=== PATIENT | female | born 1980 | race Two or more races ===

== ENCOUNTER 2025-05-15 13:34 | Inpatient (IN) | payer OTHER ==
[~2025-05-15] VITALS: Ht 160 cm; Wt 91.9 kg
--- NOTE | 2025-05-15 14:28 | ED.PDOC ---
GI ASSESSMENT HPI Comments 44 y.o female presents to the ED for a chief complaint of RUQ pain radiating across epigastric region and to her back, associated with nausea that started this morning at 0400. Patient describes pain as sharp, constant, and has no alleviating factors despite taking Ibuprofen 800mg this morning. She mentions a history of gallstones with no cholecystectomy. She denies any vomiting, diarrhea, fever, chills. Chief Complaint: Abdominal Pain Time Seen by MD: 14:02 Reviewed Notes: Nurses Notes, Medications, Allergies Allergies: Coded Allergies: Sulfamethoxazole w/Trimethoprim (Verified Allergy, Unknown, RASH, 1 07/15/24) Information Source: Patient Mode of Arrival: Ambulatory Timing: Hours Duration: Since onset Quality: Sharp Vomitus: None Stool: Normal Severity: Moderate Recent: None Recent Hx of: Other (gallstones ) Pain Location: Epigastric, RUQ Modifying Factors: Nothing Associated sign and symptoms: Nausea, Abdominal Pain Past Medical History PAST MEDICAL HISTORY: Gallstones Surgical History: Denies all surgeries [employer] SCI[employer] 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 History Family History Family History: Reviewed,noncontributory to illness Social History Smoker: Non-Smoker Alcohol: Denies ETOH Use Drugs: Denies Drug Use Lives In: Home Constitutional: denies: chills, diaphoresis, fatigue, fever, malaise, sweats, weakness, others EENTM: denies: blurred vision, double vision, ear bleeding, ear discharge, ear drainage, ear pain, ear ringing, eye pain, eye redness, hearing loss, mouth pain, mouth swelling, nasal discharge, nose bleeding, nose congestion, nose pain, photophobia, tearing, throat pain, throat swelling, voice changes, others Respiratory: denies: cough, hemoptysis, orthopnea, SOB at rest, shortness of breath, SOB with excertion, stridor, wheezing, others Cardiovascular: denies: chest pain, dizzy spells, diaphoresis, Dyspnea on exertion, edema, irregular heart beat, left arm pain, lightheadedness, palpitations, PND, syncope, others Gastrointestinal: reports: abdominal pain, nausea; denies: abdomen distended, blood streaked bowels, constipated, diarrhea, dysphagia, difficulty swallowing, hematemesis, melena, poor appetite, poor fluid intake, rectal bleeding, rectal pain, vomiting, others Genitourinary: denies: abnormal vagina bleeding, burning, dyspareunia, dysuria, flank pain, frequency, hematuria, incontinence, pain, , vagina discharge, urgency, others Neurological: denies: dizziness, fainting, headache, left sided numbness, left sided weakness, numbness, paresthesia, pre-existing deficit, right sided numbness, right sided weakness, seizure, speech problems, tingling, tremors, weakness, others Musculoskeletal: denies: back pain, gout, joint pain, joint swelling, muscle pain, muscle stiffness, neck pain, others Integumetry: denies: bruises, change in color, change in hair/nails, dryness, laceration, lesions, lumps, rash, wounds, others Allergic/Immunocompromised: denies: Difficulty Healing, Frequent Infections, Hives, Itching, others Hematologic/Lymphatic: denies: anemia, blood clots, easy bleeding, easy bru ising, swollen glands, others Endocrine: denies: excessive hunger, excessive sweating, excessive thirst, e xcessive urination, flushing, intolerance to cold, intolerance to heat, unexplained weight gain, unexplained weight loss, others Psychiatric: denies: anxiety, bipolar disorder, depression, hopeless, panic disorder, schizophrenia, sleepless, suicidal, others All Other Systems: Reviewed and Negative Physical Exam General Appearance: Moderate Distress HEENT: Normal ENT Inspection, Pharynx Normal, TMs Normal Neck: Full Range of Motion, Non-Tender, Normal, Normal Inspection Respiratory: Chest Non-Tender, Lungs Clear, No Accessory Muscle Use, No Respiratory Distress, Normal Breath Sounds Cardiovascular: No Edema, No JVD, No Murmur, No Gallop, Normal Peripheral Pulses, Regular Rate/Rhythm Breast Exam: Deferred Gastrointestinal: RUQ Genitalia: Deferred Pelvic: Deferred Rectal: Deferred Extremities: No calf tenderness, Normal capillary refill, Normal inspection, Normal range of motion, Non-tender, No pedal edema Musculoskeletal : Apperance: Normal Neurologic: Alert, medical researcher II-XII nml as Tested, No Motor Deficits, Normal Affect, Normal Mood, No Sensory Deficits Cerebellar Function: Normal Reflexes: Normal Skin: Dry, Normal Color, Warm Peripheral Pulses: 3+ Radial (R), 3+ Radial (L) Lymphatic: No Adenopathy Was a procedure done? Was a procedure done?: No GI differential Dx Differential Diagnosis: Cholangitis, Cholecystitis, Constipation, Esophagitis, Gastritis/PUD, Gastroenteritis X-Ray, Labs, Meds, VS Vital Signs Date Time Temp Pulse Resp B/P (MAP) Pulse Ox O2 Delivery O2 Flow Rate FiO2 05/15/25 15:26 98.6 82 17 119/74 (89) 100 98.6 05/15/25 15:26 82 17 100 Room Air 05/15/25 15:26 100 17 119/74 05/15/25 13:41 98.0 71 12 135/93 97 98.0 Lab Test 05/15/25 15:29 05/15/25 14:46 Range/Units Urine Color Pending Urine Clarity Pending Urine pH Pending Urine Specific [place] Pending Urine Protein Pending Urine Ketones Pending Urine Blood Pending Urine Nitrite Pending Urine Bilirubin Pending Urine Urobilinogen Pending Urine Leukocyte Esterase Pending Urine RBC Pending Urine Microscopic WBC Pending Urine Squamous Epithelial Cells Pending Urine Bacteria Pending Urine Glucose Pending White Blood Count 13.5 H 4.4-10.8 10^3/uL Red Blood Count 4.82 4.0-5.20 10^6/uL Hemoglobin 14.0 12.2-16.2 g/dL Hematocrit 42.1 36.0-46.0 % Mean Corpuscular Volume 87.2 80.0-100.0 fL Mean Corpuscular Hemoglobin 29.0 28.0-32.0 pg Mean Corpuscular Hemoglobin Concent 33.3 32.0-36.0 g/dL Red Cell Distribution Width 14.1 11.8-14.3 % Platelet Count 325 140-450 10^3/uL Mean Platelet Volume 8.6 6.9-10.8 fL Neutrophils (%) (Auto) 57.7 37.0-80.0 % Lymphocytes (%) (Auto) 33.4 10.0-50.0 % Monocytes (%) (Auto) 6.4 0.0-12.0 % Eosinophils (%) (Auto) 1.8 0.0-7.0 % Basophils (%) (Auto) 0.7 0.0-2.0 % Neutrophils # (Auto) 7.8 1.6-8.6 10 ^3/uL Lymphocytes # (Auto) 4.5 0.4-5.4 10 ^3/uL Monocytes # (Auto) 0.9 0-1.3 10 ^3/uL Eosinophils # (Auto) 0.2 0-0.8 10 ^3/uL Basophils # (Auto) 0.1 0-0.2 10 ^3/uL Nucleated Red Blood Cells 0.0 % Sodium Level 139 136-145 mmol/L Potassium Level 4.2 3.5-5.1 mmol/L Chloride Level 107 98-107 mmol/L Carbon Dioxide Level 24 20-31 mmol/L Anion Gap 8 5-15 Blood Urea Nitrogen 10 9-23 mg/dL Creatinine 0.74 0.550-1.02 mg/dL Glomerular Filtration Rate Calc 103 >90 mL/min BUN/Creatinine Ratio 13.5 10.0-20.0 Serum Glucose 116 H 74-106 mg/dL Calcium Level 10.2 8.7-10.4 mg/dL Total Bilirubin 0.3 0.2-1.0 mg/dL Aspartate Amino Transferase (AST) 17 13-40 U/L Alanine Aminotransferase (ALT) 10 7-40 U/L Alkaline Phosphatase 88 46-116 U/L Total Protein 7.5 5.7-8.2 g/dL Albumin 4.6 3.2-4.8 g/dL Lipase 39 12-53 U/L Current Medications Medications (Trade) Dose Ordered Sig/Shlomo Route Start Time Stop Time Status Last Admin Morphine Sulfate 4 mg ONCE ONCE IV 05/15/25 14:15 05/15/25 14:16 DC 05/15/25 15:26 Ondansetron HCl (Zofran) 4 mg ONCE ONCE IV 05/15/25 14:15 05/15/25 14:16 DC 05/15/25 15:25 Patient alert. Complaining of right upper quadrant pain. Ultrasound reveals gallstone. Vitals stable. Answering questions. Liver profile within normal limits. Lipase within normal limits. WBC slightly elevated. Possibly need HIDA scan. Establish intravenous access. Was given fluids. Was given Rocephin. Was given Flagyl. Explained to the patient. Continue monitoring. Time of 1ST Reevaluation: 14:25 Reevaluation 1ST: Unchanged Patient Education/Counseling: Diagnosis, Treatment, Prognosis Family Education/Counseling: No Family Present SEPSIS Sepsis Screen Date sepsis recognized/suspect: May 15, 2025 Time Sepsis recognized/suspect: 1342 Recent Procedure: No On Antibiotic Therapy: No Respiratory Rate >20: No Heart Rate >90: No Temp<36 C (96.8 F) or >38.3 C: No SBP <90 or MAP <65 mmHG: No New Acute Mental Status Change: No Is the patient on CPAP, BIPAP,: No Physician Orders Urinalysis (05/15/25 14:12) Gallbladder (05/15/25 14:12) Vital Signs Date Time Temp Pulse Resp B/P (MAP) Pulse Ox O2 Delivery O2 Flow Rate FiO2 05/15/25 15:26 98.6 82 17 119/74 (89) 100 98.6 05/15/25 15:26 82 17 100 Room Air 05/15/25 15:26 100 17 119/74 05/15/25 13:41 98.0 71 12 135/93 97 98.0 Laboratory Tests Test 05/15/25 14:46 White Blood Count 13.5 10^3/uL (4.4-10.8) H Medications Medications Dose Ordered Sig/Shlomo Route Start Time Stop Time Status Last Admin Dose Admin Morphine Sulfate 4 mg ONCE ONCE IV 05/15/25 14:15 05/15/25 14:16 DC 05/15/25 15:26 Ondansetron HCl 4 mg ONCE ONCE IV 05/15/25 14:15 05/15/25 14:16 DC 05/15/25 15:25 Departure 1 Departure Time of Disposition: 16:27 Impression: Primary Impression: Acute abdominal pain Additional Impression: Gallstones Disposition: ADMITTED INPATIENT Admit to: Med Surg Condition: Guarded Critical Care Note Critical Care Time?: No Stability Stability form required: No I personally scribed for NADIYA DILLARD MD ([email or web address]) on 05/15/25 at 14:28. Electronically submitted by Ivet Wiley ([facility]). NADIYA DILLARD MD May 15, 2025 14:28
[2025-05-15 15:00] LABS: Hematocrit 42.1 % (36.0-46.0); Hemoglobin 14.0 g/dL (12.2-16.2); Mean Corpuscular Hemoglobin 29.0 pg (28.0-32.0); Mean Corpuscular Volume 87.2 fL (80.0-100.0); Nucleated Red Blood Cells % 0.0 %
[2025-05-15 15:14] LABS: Alanine Aminotransferase 10 U/L (7-40); Albumin 4.6 g/dL (3.2-4.8); Alkaline Phosphatase 88 U/L (46-116); Anion Gap 8 (5-15); BUN/Creatinine Ratio 13.5 (10.0-20.0); Blood Urea Nitrogen 10 mg/dL (9-23); Calcium 10.2 mg/dL (8.7-10.4); Carbon Dioxide 24 mmol/L (20-31); Chloride 107 mmol/L (98-107); Lipase 39 U/L (12-53); Potassium 4.2 mmol/L (3.5-5.1); Sodium 139 mmol/L (136-145); Total Protein 7.5 g/dL (5.7-8.2)
[2025-05-15 15:15] LABS: Bilirubin, Total 0.3 mg/dL (0.2-1.0); Glucose 116 mg/dL (74-106)
--- NOTE | 2025-05-15 15:16 | DVH ---
ULTRASOUND ABDOMEN, LIMITED RIGHT UPPER QUADRANT: REASON FOR EXAM: Acute cholecystitis. Abdominal pain. TECHNIQUE: Real-time sector scans in the transverse and longitudinal planes were obtained through the right upper quadrant of the abdomen. FINDINGS: The liver is of normal size and contour. The liver appears diffusely mildly echogenic. There is hepatopetal flow in the portal vein. There is no intrahepatic biliary ductal dilatation. The common bile duct is not visualized. There are shadowing gallstones and sludge within the gallbladder. There is no gallbladder wall thickening nor pericholecystic fluid. There is no sonographic Bright's sign. The visualized portion of the pancreas is unremarkable. The right kidney measures 9.1 cm. No hydronephrosis or nephrolithiasis is identified. There is no evidence of right renal mass or cyst. The visualized portions of the abdominal aorta demonstrate no evidence of aneurysmal dilatation. The visualized inferior vena cava is unremarkable. There is no free fluid identified in the right upper quadrant. IMPRESSION: Cholelithiasis without sonographic evidence of acute cholecystitis. No sonographic bright's sign. Diffusely echogenic liver parenchyma. This may be secondary to steatosis or another diffuse hepatic process. Correlate clinically and with liver function tests.
[2025-05-15] MEDS: ONDANSETRON HCL 4 MG/2 ML VIAL IV ONE (15:25)
[2025-05-15] MEDS: MORPHINE SULFATE 4 MG/ML SYR/VIAL IV ONE (15:26)
[2025-05-15 16:28] LABS: Urine Protein, UAD Negative (Negative)
[2025-05-15 17:35] VITALS: PULSE 77; RESP 18; O2SAT 100
[2025-05-15 19:41] VITALS: PULSE 93; RESP 12; O2SAT 92
--- NOTE | 2025-05-15 23:55 | DVHHPRES ---
History of Present Illness Resident Creating Document: UTE SMITH RESIDENT History of Present Illness This is a 44-year-old female with past medical history of cholelithiasis, gastritis came to ER with a complaint of right upper quadrant and epigastric pain which is 7/10 intensity before came to the hospital. The pain started 2 days but worsen for a.m. day before admission which is spasmodic, intermittent, no radiation, no aggravating or relieving factor. Patient having similar symptoms 2 weeks back. Patient taking ibuprofen for 1 month due to abdominal pain. Associated symptoms nausea but no vomiting, fever, SOB, chest pain, headache, dysuria or any other acute distress. EGD done week earlier but unknown biopsy result. Past medical history: As above Past surgical history: x2 Family history: Parents diabetes, hypertension Personal history: Drinking alcohol occasionally but denies any illicit drug or smoking Allergy: Bactrim PCP: Unable to recall name(in [place]) Review of Systems Constitutional: Yes: Malaise; No: Fever, Chills, Sweats, Weakness, Other Eyes: No: Pain, Vision change, Conjunctivae inflammation, Eyelid inflammation, Other, Redness ENT: No: Ear pain, Ear discharge, Nose pain, Nose discharge, Nose congestion, Mouth pain, Mouth swelling, Throat pain, Throat swelling, Other Respiratory: No: Cough, Dry, Shortness of breath, SOB with excertion, Wheezing, Hemoptysis, Pleuritic Pain, Sputum, Wheezing, Other Cardiovascular: No: Chest Pain, Palpitations, Orthopnea, Paroxysmal Noc. Dyspnea, Edema, Lt Headedness, Other Gastrointestinal: Nausea, Abdominal Pain; No: Vomiting, Diarrhea, Constipation, Melena, Hematochezia, Other Genitourinary: No Dysuria, No Frequency, No Incontinence, No Hematuria, No Retention, No Other Musculoskeletal: No: other, neck pain, shoulder pain, arm pain, back pain, hand pain, leg pain, foot pain Skin: No: Rash, Lesions, Jaundice, Bruising, Other Neurological: No: Weakness, Numbness, Incoordination, Change in speech, Confusion, Seizures, Other Allergies: Coded Allergies: Sulfamethoxazole w/Trimethoprim (Verified Allergy, Unknown, RASH, 05/15/25) Exam Vital Signs Vital Signs Date Time Temp Pulse Resp B/P (MAP) Pulse Ox O2 Delivery O2 Flow Rate FiO2 05/15/25 22:00 76 11 109/71 (84) 96 05/15/25 19:41 98.4 98.4 05/15/25 19:41 Room Air* 0 21 General Appearance: Oriented X3, No acute distress, mild distress HEENT: Atraumatic, PERRLA, Mucous membr. moist/pink Respiratory: Clear to auscultation, Normal air movement Cardiovascular: Regular rate, Normal S1, Normal S2, No murmurs Abdominal: Normal bowel sounds, Other (Epigastric and right upper quadrant tender on deep palpation, Bright sign positive) Extremities: No clubbing, No edema Skin: No rashes, No breakdown Neuro: Normal gait, Normal speech, Strength at 5/5 X4 ext, Normal tone, Sensation intact, Cranial nerves 3-12 NL Psych/Mental Status: Mental status NL, Mood NL Labs/Xrays Labs Test 05/15/25 15:29 05/15/25 14:46 Range/Units Urine Color Colorless Yellow Urine Clarity Clear Clear Urine pH 5.5 5.0-9.0 Urine Specific [place] 1.005 1.001-1.035 Urine Protein Negative Negative Urine Ketones Negative Negative Urine Blood Negative Negative /uL Urine Nitrite Negative Negative Urine Bilirubin Negative Negative Urine Urobilinogen Normal Negative mg/dL Urine Leukocyte Esterase Negative Negative /uL Urine RBC None seen 0 - 4 /hpf Urine Microscopic WBC < 1 0-5 /HPF Urine Squamous Epithelial Cells Few <5 /hpf Urine Bacteria None seen None Seen /hpf Urine Glucose Normal Normal mg/dL White Blood Count 13.5 H 4.4-10.8 10^3/uL Red Blood Count 4.82 4.0-5.20 10^6/uL Hemoglobin 14.0 12.2-16.2 g/dL Hematocrit 42.1 36.0-46.0 % Mean Corpuscular Volume 87.2 80.0-100.0 fL Mean Corpuscular Hemoglobin 29.0 28.0-32.0 pg Mean Corpuscular Hemoglobin Concent 33.3 32.0-36.0 g/dL Red Cell Distribution Width 14.1 11.8-14.3 % Platelet Count 325 140-450 10^3/uL Mean Platelet Volume 8.6 6.9-10.8 fL Neutrophils (%) (Auto) 57.7 37.0-80.0 % Lymphocytes (%) (Auto) 33.4 10.0-50.0 % Monocytes (%) (Auto) 6.4 0.0-12.0 % Eosinophils (%) (Auto) 1.8 0.0-7.0 % Basophils (%) (Auto) 0.7 0.0-2.0 % Neutrophils # (Auto) 7.8 1.6-8.6 10 ^3/uL Lymphocytes # (Auto) 4.5 0.4-5.4 10 ^3/uL Monocytes # (Auto) 0.9 0-1.3 10 ^3/uL Eosinophils # (Auto) 0.2 0-0.8 10 ^3/uL Basophils # (Auto) 0.1 0-0.2 10 ^3/uL Nucleated Red Blood Cells 0.0 % Sodium Level 139 136-145 mmol/L Potassium Level 4.2 3.5-5.1 mmol/L Chloride Level 107 98-107 mmol/L Carbon Dioxide Level 24 20-31 mmol/L Anion Gap 8 5-15 Blood Urea Nitrogen 10 9-23 mg/dL Creatinine 0.74 0.550-1.02 mg/dL Glomerular Filtration Rate Calc 103 >90 mL/min BUN/Creatinine Ratio 13.5 10.0-20.0 Serum Glucose 116 H 74-106 mg/dL Calcium Level 10.2 8.7-10.4 mg/dL Total Bilirubin 0.3 0.2-1.0 mg/dL Aspartate Amino Transferase (AST) 17 13-40 U/L Alanine Aminotransferase (ALT) 10 7-40 U/L Alkaline Phosphatase 88 46-116 U/L Total Protein 7.5 5.7-8.2 g/dL Albumin 4.6 3.2-4.8 g/dL Lipase 39 12-53 U/L SEPSIS Sepsis Screen Date sepsis recognized/suspect: May 15, 2025 Time Sepsis recognized/suspect: 1952 Recent Procedure: No On Antibiotic Therapy: No Respiratory Rate >20: No Heart Rate >90: No Temp<36 C (96.8 F) or >38.3 C: No SBP <90 or MAP <65 mmHG: No New Acute Mental Status Change: No Is the patient on CPAP, BIPAP,: No Physician Orders Admit (05/15/25 23:50) Code Status (05/15/25 23:50) 0.9% Ns 1000 Ml (05/16/25 00:00) Npo (Nothing By Mouth) Diet (05/16/25 Breakfast) Notify Of Changes From Base (05/15/25 23:50) Zosyn Extended Infusion (05/16/25 00:00) Zosyn Extended Infusion (05/16/25 06:00) Hydromorphone Injection (Dilaudid Inject (05/16/25 00:00) Ondansetron Hcl (Zofran) (05/16/25 00:00) Vital Signs Date Time Temp Pulse Resp B/P (MAP) Pulse Ox O2 Delivery O2 Flow Rate FiO2 05/15/25 22:00 76 11 109/71 (84) 96 05/15/25 21:00 80 13 118/73 (88) 98 05/15/25 20:00 81 05/15/25 20:00 79 12 105/68 (80) 98 05/15/25 19:41 98.4 93 12 118/79 (92) 92 98.4 05/15/25 19:41 93 12 92 Room Air* 0 21 05/15/25 18:01 77 18 103/70 05/15/25 18:00 80 13 103/68 (80) 99 05/15/25 17:35 98.3 77 18 103/70 (81) 100 98.3 05/15/25 17:35 77 18 100 Room Air* 0 05/15/25 16:54 79 16 128/93 (105) 100 Laboratory Tests Test 05/15/25 14:46 White Blood Count 13.5 10^3/uL (4.4-10.8) H Medications Medications Dose Ordered Sig/Shlomo Route Start Time Stop Time Status Last Admin Dose Admin Ceftriaxone Sodium 50 ml @ 100 mls/hr ONCE ONCE IV 05/15/25 16:30 05/15/25 16:59 DC 05/15/25 16:56 100 MLS/HR Metronidazole 100 ml @ 100 mls/hr ONCE ONCE IV 05/15/25 16:30 05/15/25 17:29 DC 05/15/25 16:56 100 MLS/HR Morphine Sulfate 4 mg ONCE ONCE IV 05/15/25 14:15 05/15/25 14:16 DC 05/15/25 15:26 4 MG Ondansetron HCl 4 mg ONCE ONCE IV 05/15/25 14:15 05/15/25 14:16 DC 05/15/25 15:25 4 MG Assessment/Plan Assessment/Plan Intractable abdominal pain due to acute cholecystitis secondary to cholelithiasis Acute gastritis History of cholelithiasis Lab shows leukocytosis with left shift Ultrasound gallbladder cholelithiasis Lipase 39 NPO IVF Empiric antibiotic Zosyn IV pain management IV antiemetic Pantoprazole Surgical consult possible cholecystectomy. Follow labs, test. Obesity, BMI 35.9 Lifestyle modification Diet: NPO GI prophylaxis: Pantoprazole DVT prophylaxis: Heparin Goals of care discussion. More than 29 minute spent with patient. Full code status. Case discussed with Dr. Newman. Plan discussed with: Patient, Other (Nurse) My Orders Orders - UTE SMITH Procedure Category Date Status Time Admit ADMIT 05/15/25 Verified 23:50 Code Status CODE 05/15/25 Verified 23:50 0.9% Ns 1000 Ml PHA 05/16/25 Verified 00:00 Npo (Nothing By DIET 05/16/25 Verified Mouth) Diet Breakfast Notify Of Changes SALOMÓN 05/15/25 Verified From Base 23:50 Zosyn Extended PHA 05/16/25 Verified Infusion 00:00 Zosyn Extended PHA 05/16/25 Verified Infusion 06:00 Hydromorphone PHA 05/16/25 Verified Injection (Dilaudid 00:00 Ondansetron Hcl PHA 05/16/25 Verified (Zofran) 00:00 Date of Service: May 15, 2025 Billing Provider: TIMOTHY NEWMAN MD Common Visit Codes: 03211-FAJHFOX INP/OBS CARE (HIGH) Secondary Visit Codes: 64781-[id number] CARE PLAN 30 MINUTES UTE SMITH May 15, 2025 23:55
[2025-05-16] MEDS ORDERED: HYDROmorphone HCL 2 MG/ML VL/or syr IV PRN
[2025-05-16] MEDS ORDERED: ONDANSETRON HCL 4 MG/2 ML VIAL IV PRN
[2025-05-16] MEDS: PIPERACILLIN-TAZOB 3.375GM 100 ML IV ONE (00:47)
[2025-05-16] MEDS: PANTOPRAZOLE 40 MG/10 ML VIAL INJ IV ONE (00:48)
[2025-05-16] MEDS: SODIUM CHLORIDE 0.9% 1,000 ML IV SCH (00:52)
[2025-05-16] MEDS: PIPERACILLIN-TAZOB 3.375GM 100 ML IV SCH (06:21)
[2025-05-16 06:45] LABS: Hematocrit 39.0 % (36.0-46.0); Hemoglobin 13.3 g/dL (12.2-16.2); Mean Corpuscular Hemoglobin 29.3 pg (28.0-32.0); Mean Corpuscular Volume 85.8 fL (80.0-100.0); Nucleated Red Blood Cells % 0.0 %
[2025-05-16 06:57] LABS: Anion Gap 9 (5-15); Carbon Dioxide 26 mmol/L (20-31); Chloride 107 mmol/L (98-107); Potassium 4.0 mmol/L (3.5-5.1); Sodium 142 mmol/L (136-145)
[2025-05-16 06:58] LABS: Calcium 8.9 mg/dL (8.7-10.4)
[2025-05-16 07:02] LABS: INR 1.07 (0.9-1.15); Partial Thromboplastin Time 28.5 SEC (24.5-34.5); Prothrombin Time 11.3 sec (9.3-11.8)
[2025-05-16 07:03] LABS: BUN/Creatinine Ratio 11.8 (10.0-20.0); Blood Urea Nitrogen 9 mg/dL (9-23); Glucose 105 mg/dL (74-106)
[2025-05-16 07:15] VITALS: BP 104/67; PULSE 83; RESP 16; TEMP 98.6; O2SAT 97
[2025-05-16 08:48] VITALS: BP 103/69; PULSE 81; RESP 16; TEMP 98.4; O2SAT 98
[2025-05-16] MEDS: PANTOPRAZOLE 40 MG/10 ML VIAL INJ IV SCH (09:04)
--- NOTE | 2025-05-16 09:07 | DVHINCON2 ---
Date of service: May 16, 2025 History of Present Illness 44-year-old female with a history of gallstones with multiple episodes of biliary colic in the past admitted to the emergency room secondary to two day history of right upper quadrant abdominal pain with nausea. Patient denies any fevers or chills. Patient is scheduled to undergo a endoscopy by Gastroenterology in [facility] where she lives on Sunday and wants to go home. Past Medical History History of gallstones Past Surgical History 2 x C-sections Family History: Diabetes mellitus G8 MOTHER G8 FATHER Hypertension G8 MOTHER G8 FATHER Family History Noncontributory Social History Denies alcohol, tobacco, IV drug use Allergies: Coded Allergies: Sulfamethoxazole w/Trimethoprim (Verified Allergy, Unknown, RASH, 05/15/25) Current Medications Current Medications Medications (Trade) Dose Ordered Sig/Shlomo Route PRN Reason Start Time Stop Time Status Last Admin Sodium Chloride 1,000 ml @ 120 mls/hr Q8H20M IV 05/16/25 00:00 05/16/25 00:52 Piperacillin Sod/ Tazobactam Sod 100 ml @ 25 mls/hr Q8HR IV 05/16/25 06:00 05/16/25 06:21 Hydromorphone HCl (Dilaudid Injection) 0.5 mg Q4HPRN PRN IV SEVERE PAIN (7-10 PAIN SCALE) 05/16/25 00:00 Ondansetron HCl (Zofran) 4 mg Q6HPRN PRN IV NAUSEA / VOMITING 05/16/25 00:00 Pantoprazole Sodium (Protonix) 40 mg DAILY IV 05/16/25 10:00 Vital Signs Vital Signs Date Time Temp Pulse Resp B/P (MAP) Pulse Ox O2 Delivery O2 Flow Rate FiO2 05/16/25 08:48 98.4 81 16 103/69 (80) 98 98.4 05/15/25 19:41 Room Air* 0 21 Physical Exam GEN: Age-appropriate female in no acute distress. Alert. HEENT: Normocephalic atraumatic. Moist mucous membranes. Anicteric sclerae. CV: RRR Respiratory: CTAB ABD: Minimal right upper quadrant tenderness to palpation without guarding or rebound Abdominal ultrasound: Cholelithiasis without sonographic evidence of acute cholecystitis Labs/Diagnostic Data Labs Test 05/16/25 06:29 05/15/25 15:29 05/15/25 14:46 Range/Units White Blood Count 10.4 4.4-10.8 10^3/uL Red Blood Count 4.55 4.0-5.20 10^6/uL Hemoglobin 13.3 12.2-16.2 g/dL Hematocrit 39.0 36.0-46.0 % Mean Corpuscular Volume 85.8 80.0-100.0 fL Mean Corpuscular Hemoglobin 29.3 28.0-32.0 pg Mean Corpuscular Hemoglobin Concent 34.1 32.0-36.0 g/dL Red Cell Distribution Width 13.9 11.8-14.3 % Platelet Count 293 140-450 10^3/uL Mean Platelet Volume 8.1 6.9-10.8 fL Neutrophils (%) (Auto) 56.6 37.0-80.0 % Lymphocytes (%) (Auto) 35.2 10.0-50.0 % Monocytes (%) (Auto) 5.8 0.0-12.0 % Eosinophils (%) (Auto) 1.8 0.0-7.0 % Basophils (%) (Auto) 0.6 0.0-2.0 % Neutrophils # (Auto) 5.9 1.6-8.6 10 ^3/uL Lymphocytes # (Auto) 3.7 0.4-5.4 10 ^3/uL Monocytes # (Auto) 0.6 0-1.3 10 ^3/uL Eosinophils # (Auto) 0.2 0-0.8 10 ^3/uL Basophils # (Auto) 0.1 0-0.2 10 ^3/uL Nucleated Red Blood Cells 0.0 % Prothrombin Time 11.3 9.3-11.8 sec Prothrombin Time INR 1.07 0.9-1.15 Activated Partial Thromboplast Time 28.5 24.5-34.5 SEC Sodium Level 142 136-145 mmol/L Potassium Level 4.0 3.5-5.1 mmol/L Chloride Level 107 98-107 mmol/L Carbon Dioxide Level 26 20-31 mmol/L Anion Gap 9 5-15 Blood Urea Nitrogen 9 9-23 mg/dL Creatinine 0.76 0.550-1.02 mg/dL Glomerular Filtration Rate Calc 100 >90 mL/min BUN/Creatinine Ratio 11.8 10.0-20.0 Serum Glucose 105 74-106 mg/dL Hemoglobin A1c 5.8 H <5.7 % A1C Calcium Level 8.9 8.7-10.4 mg/dL Thyroid Stimulating Hormone (TSH) 1.83 0.55-4.78 uIU/mL Urine Color Colorless Yellow Urine Clarity Clear Clear Urine pH 5.5 5.0-9.0 Urine Specific [place] 1.005 1.001-1.035 Urine Protein Negative Negative Urine Ketones Negative Negative Urine Blood Negative Negative /uL Urine Nitrite Negative Negative Urine Bilirubin Negative Negative Urine Urobilinogen Normal Negative mg/dL Urine Leukocyte Esterase Negative Negative /uL Urine RBC None seen 0 - 4 /hpf Urine Microscopic WBC < 1 0-5 /HPF Urine Squamous Epithelial Cells Few <5 /hpf Urine Bacteria None seen None Seen /hpf Urine Glucose Normal Normal mg/dL Total Bilirubin 0.3 0.2-1.0 mg/dL Aspartate Amino Transferase (AST) 17 13-40 U/L Alanine Aminotransferase (ALT) 10 7-40 U/L Alkaline Phosphatase 88 46-116 U/L Total Protein 7.5 5.7-8.2 g/dL Albumin 4.6 3.2-4.8 g/dL Lipase 39 12-53 U/L Assessment 1. Chronic cholecystitis Plan/Recommendation 1. Recommended cholecystectomy however because patient lives in [place], she wants to get all her medical treatment there and currently refuses surgery. Plan discussed with: Patient MARCOS GUAJARDO MD May 16, 2025 09:07
== END 2025-05-16 10:21 | disposition left against medical advice (07) | DRG 446 ==
LOC: ER 13:34 → OVERFLOW 23:50
PROVIDERS: ATTEND Emergency Medicine
DX: K80.12 Calculus of gallbladder with acute and chronic cholecystitis without obstruction (principal); D72.829 Elevated white blood cell count, unspecified; E66.9 Obesity, unspecified; K29.00 Acute gastritis without bleeding; Z82.49 Family history of ischemic heart disease and other diseases of the circulatory system; Z83.3 Family history of diabetes mellitus; Z88.2 Allergy status to sulfonamides; Z68.35 Body mass index [BMI] 35.0-35.9, adult
CPT/HCPCS: 36415; 76705; 80048; 80053; 81001; 82306; 82607; 83036; 83690; 84443; 85025; 85610; 85730; G0378; J2405; J2470; J2543; J3490